=== PATIENT | female | born 1985 | race Caucasian/White ===

== ENCOUNTER → 2019-10-11 14:34 | Outpatient (BNVA) | payer MEDICAID, SELFPAY | PROVIDERS: Family Provider Nurse Practitioner Family; Visit Provider Nurse Practitioner Family | DX: M25.561 Pain in right knee (principal); G89.29 Other chronic pain; K04.7 Periapical abscess without sinus | CPT/HCPCS: 73562 ==

== ENCOUNTER → 2020-09-17 10:47 | Outpatient (BNVA) | payer BC, SELFPAY | PROVIDERS: Family Provider Nurse Practitioner Family; Visit Provider Nurse Practitioner Family | DX: J01.90 Acute sinusitis, unspecified (principal); B96.89 Other specified bacterial agents as the cause of diseases classified elsewhere; R10.9 Unspecified abdominal pain; Z20.822 Contact with and (suspected) exposure to COVID-19 | CPT/HCPCS: 81003; 87635 ==

== ENCOUNTER → 2020-11-06 12:03 | Outpatient (BNVA) | payer BC, SELFPAY | PROVIDERS: Family Provider Nurse Practitioner Family; Visit Provider Nurse Practitioner Family | DX: L03.115 Cellulitis of right lower limb (principal); S89.91XA Unspecified injury of right lower leg, initial encounter; S79.911A Unspecified injury of right hip, initial encounter; M25.461 Effusion, right knee; X58.XXXA Exposure to other specified factors, initial encounter | CPT/HCPCS: 73502; 73562; 87070; 87077; 87184 ==

== ENCOUNTER → 2020-11-14 14:05 | Outpatient (BNVA) | payer BC, SELFPAY | PROVIDERS: Family Provider Nurse Practitioner Family; Visit Provider Nurse Practitioner Family | DX: M79.604 Pain in right leg (principal); L03.115 Cellulitis of right lower limb | CPT/HCPCS: 73590 ==

== ENCOUNTER 2020-11-21 14:38 | Outpatient (CLI) | payer BC, MEDICAID, SELFPAY ==
--- NOTE | 2020-11-21 14:15 | USCV_ITS ---
Telma Epperson Age: 35 Gender: F : 1985 Exam Date: 11/21/2020 15:24 Ordering Phys: Prieto Presley MD Technologist: [place] [facility] [place] HISTORY: Lower extremity swelling. PROCEDURES: Venous duplex imaging was performed in only the right lower extremity. The following venous structures were evaluated: common femoral vein, profunda vein, proximal portion of the greater saphenous vein, superficial femoral vein, and the popliteal vein. In addition, the posterior tibial and peroneal trunk were evaluated. On the right side, the common femoral, superficial femoral, profunda femoral, popliteal, posterior tibial, greater saphenous veins and the peroneal trunk were identified and interrogated in the standard fashion. These veins were found to be easily compressible with spontaneous blood flow. No evidence of insufficiency or thrombus noted. FINDINGS: Normal 2-D Doppler and augmentation and compressibility throughout the lower extremity venous structures. Additional imaging through the proximal calf veins also reveals no thrombus. Limited evaluation of the greater saphenous vein is patent with no thrombus.. CONCLUSIONS No evidence of DVT in the above-mentioned identifiable veins. Dr Roseann Gay MD [facility] (Electronically Signed) Final Date: 21 November 2020 17:02 S
== END 2020-11-21 14:39 | disposition home or self-care (01) ==
PROVIDERS: PCP Nurse Practitioner Family; Visit Provider Family Medicine
DX: L03.115 Cellulitis of right lower limb (principal); M79.89 Other specified soft tissue disorders
CPT/HCPCS: 93971

== ENCOUNTER 2020-11-24 14:06 | Outpatient (CLI) | payer BC, MEDICAID, SELFPAY | END 2020-11-24 14:07 | disposition home or self-care (01) | LOC: WOUND 14:08 | PROVIDERS: PCP Nurse Practitioner Family; Visit Provider Emergency Medicine | DX: L97.811 Non-pressure chronic ulcer of other part of right lower leg limited to breakdown of skin (principal); F17.210 Nicotine dependence, cigarettes, uncomplicated | CPT/HCPCS: 11042; 99203 ==

== ENCOUNTER 2020-12-01 11:13 | Outpatient (CLI) | payer BC, MEDICAID, SELFPAY | END 2020-12-01 11:14 | disposition home or self-care (01) | LOC: WOUND 11:13 | PROVIDERS: PCP Nurse Practitioner Family; Visit Provider Emergency Medicine | DX: A49.02 Methicillin resistant Staphylococcus aureus infection, unspecified site (principal); L97.811 Non-pressure chronic ulcer of other part of right lower leg limited to breakdown of skin; L03.115 Cellulitis of right lower limb; F17.210 Nicotine dependence, cigarettes, uncomplicated | CPT/HCPCS: 11042 ==

== ENCOUNTER 2020-12-18 10:59 | Outpatient (CLI) | payer BC, MEDICAID, SELFPAY ==
--- NOTE | 2020-12-18 11:00 | USCV_ITS ---
Telma Epperson Age: 35 Gender: F : 1985 Exam Date: 12/18/2020 11:16 Ordering Phys: Prieto Presley MD Technologist: Akosua Barney [place] [facility] [place]: HISTORY: Lower extremity pain. PROCEDURES: Right duplex Venous Insufficiency study of the Deep and Superficial systems was carried out according to normal protocol with the patient in supine positon for deep system and dependent position for the superficial system. FINDINGS: No reflux seen at this time, There does not appear to be any thrombus at this time. The veins were found to be easily compressible with spontaneous blood flow. Non pulsatile flow pattern. CONCLUSIONS No evidence of DVT in the above-mentioned identifiable veins on the right side. No significant venous reflux Normal caliber superficial veins. Dr Roseann Gay MD [facility] (Electronically Signed) Final Date: 19 December 2020 21:55 S
== END 2020-12-18 11:00 | disposition home or self-care (01) ==
LOC: US 11:00
PROVIDERS: PCP Nurse Practitioner Family; Visit Provider Family Medicine
DX: M79.604 Pain in right leg (principal)
CPT/HCPCS: 93971

== ENCOUNTER → 2024-07-18 14:45 | Outpatient (BNVA) | payer BC, MEDICAID, SELFPAY | PROVIDERS: PCP Nurse Practitioner Family; Visit Provider Nurse Practitioner Family | DX: S99.921A Unspecified injury of right foot, initial encounter (principal); M19.071 Primary osteoarthritis, right ankle and foot; S99.929A Unspecified injury of unspecified foot, initial encounter; Z79.899 Other long term (current) drug therapy; Z13.6 Encounter for screening for cardiovascular disorders; X58.XXXA Exposure to other specified factors, initial encounter | CPT/HCPCS: 73630; 80053; 80061; 81003; 83036; 84443; 85025 ==